=== PATIENT | female | born 1995 | race Caucasian/White ===

== ENCOUNTER 2018-05-07 09:41 | Emergency (ER) | payer BC ==
[2018-05-07 10:05] VITALS: BP 115/74
--- NOTE | 2018-05-07 11:03 | UC ---
Eye Complaint HPI - HPI Summary HPI Summary: The patient is a 23-year-old female that presents here with a 4 day history of mild left eye irritation. She'll he it was a little itchy. He woke up this morning with matted shut. She has no severe eye pain or photophobia. Does not wear contact lenses. She has had a cold for 3-5 days. She denies any fever or chills. - History of Current Complaint Chief Complaint: UCEye Stated Complaint: LEFT EYE COMPLAINT Time Seen by Provider: 05/07/18 10:56 Hx Obtained From: Patient Hx Last Menstrual Period: 03/22/16 Onset/Duration: Gradual Onset Timing: Constant Severity Initially: Mild Severity Currently: Mild Pain Intensity: 2 Pain Scale Used: 0-10 Numeric Location of Injury: Conjunctiva Associated Signs And Symptoms: Positive: Drainage (Purulent) - Allergies/Home Medications Allergies/Adverse Reactions: Allergies Allergy/AdvReac Type Severity Reaction Status Date / Time No Known Allergies Allergy Verified 05/07/18 09:57 Home Medications: Home Medications Copper (Iud) [Paragard IUD] 1 unit IU ONCE 05/07/18 [History Confirmed 05/07/18] Testosterone Nito 1 dose PO DAILY 05/07/18 [History Confirmed 05/07/18] metFORMIN* [Glucophage 500 MG TAB *] 500 mg PO DAILY 05/07/18 [History Confirmed 05/07/18] PMH/Surg Hx/FS Hx/Imm Hx Previously Healthy: Yes - PCOS Cardiovascular History: Deep Vein Thrombosis - Surgical History Surgical History: Yes Surgery Procedure, Year, and Place: tonsillectomy - Family History Known Family History: Positive: Cardiac Disease, Hypertension, Diabetes - Social History Alcohol Use: Occasionally Substance Use Type: Marijuana Substance Use Comment - Amount & Last Used: socially Smoking Status (MU): Never Smoked Tobacco Review of Systems Constitutional: Negative Skin: Negative Eyes: Drainage, Eye Redness ENT: Nasal Discharge, Sinus Congestion Respiratory: Cough Cardiovascular: Negative Gastrointestinal: Negative Genitourinary: Negative Motor: Negative Neurovascular: Negative Musculoskeletal: Negative Neurological: Negative Psychological: Negative Is Patient Immunocompromised?: No All Other Systems Reviewed And Are Negative: Yes Physical Exam Triage Information Reviewed: Yes Appearance: Well-Appearing, No Pain Distress, Well-Nourished Vital Signs: Initial Vital Signs Temp 97.9 F 10/04/18 09:57 Pulse 66 05/07/18 09:57 Resp 17 05/07/18 09:57 BP 115/74 05/07/18 09:57 Pulse Ox 100 05/07/18 09:57 Eyes: Positive: Conjunctiva Inflamed - L, Discharge - L, Other: - EOMI/PERRL ENT: Positive: Hearing grossly normal, Nasal congestion. Negative: Tonsillar swelling, Tonsillar exudate, Trismus, Muffled voice, Hoarse voice, Dental tenderness, Sinus tenderness, Uvula midline Neck: Positive: Supple, Nontender, No Lymphadenopathy Respiratory: Positive: Lungs clear, Normal breath sounds, No respiratory distress, No accessory muscle use Cardiovascular: Positive: RRR, No Murmur, Pulses Normal Musculoskeletal: Positive: ROM Intact, No Edema Neurological: Positive: Alert Psychological Exam: Normal Skin Exam: Normal Eye Complaint Course/Dx - Differential Dx/Diagnosis Provider Diagnoses: left conjunctivitis. viral URI Discharge - Sign-Out/Discharge Documenting (check all that apply): Patient Departure All imaging exams completed and their final reports reviewed: No Studies - Discharge Plan Condition: Stable Disposition: HOME Prescriptions: Polymyx/Trimethoprim OPTH* [Polytrim OPHTH*] 1 - 2 drop LEFT EYE QID #1 btl Patient Education Materials: Conjunctivitis (ED) Referrals: Sury Goetz NP [Primary Care Provider] - Additional Instructions: recheck for new or worsening symptoms recheck in 4 days if not better - Billing Disposition and Condition Condition: STABLE Disposition: Home
== END 2018-05-07 11:09 | disposition home or self-care (01) ==
LOC: UCCORT 09:41
DX: Z86.718 Personal history of other venous thrombosis and embolism (principal); H10.9 Unspecified conjunctivitis; J06.9 Acute upper respiratory infection, unspecified
CPT/HCPCS: 99212; G0463

== ENCOUNTER 2019-04-24 12:34 | Emergency (ER) | payer BC ==
--- OUTSIDE RECORDS SUMMARY | 2019-04-24 12:39 | XMS REPORT ---
:1995 Author Organization [facility] Address [address] [place] [address] Care Team Providers Name Role Phone Corine Bruce Unavailable Unavailable PROBLEMS Type Condition ICD9-CM Code [id number] Code Onset Condition SNOMED Code Dates Status Problem Polycystic E28.2 Active 89590655 ovarian syndrome Problem Morbid (severe) E66.01 Active 328690885 obesity due to excess calories Problem Acute embolism I82.409 Active 564581491 and thrombosis of unspecified deep veins of unspecified lower extremity Problem Body mass index Z68.43 Active 165688328 (BMI) 50-59.9 , adult ALLERGIES No Information ENCOUNTERS Encounter Location Date Diagnosis [facility] 103 Apr, OBGYN [place] [id number] [facility] 103 Mar, Polycystic ovarian OBGYN [facility], syndrome E28.2 [place] [id number] [facility] Jul, OBGYN [place], [place] [id number] [facility] 103 Jul, Encounter for OBGYN [facility], gynecological examination [place] [id number] (general) (routine) without abnormal findings Z01.419 ; Encounter for screening for malignant neoplasm of cervix Z12.4 ; Encounter for routine checking of intrauterine contraceptive device Z30.431 ; Polycystic ovarian syndrome E28.2 and Morbid (severe) obesity due to excess calories E66.01 [facility] 103 Jul, Polycystic ovarian OBGYN [facility], syndrome E28.2 and [place] [id number] Encounter for routine checking of intrauterine contraceptive device Z30.431 [facility] 103 Jun, Polycystic ovarian OBGYN [facility], syndrome E28.2 [place] [id number] [facility] 103 Apr, OBGYN [place], [place] [id number] [facility] 103 Mar, OBGYN [place], [place] [id number] [facility] 103 Mar, OBGYN [place] [id number] [facility] 103 Feb, OBGYN [place] [id number] [facility] 103 December, OBGYN [place], [place] [id number] [facility] 103 December, Acute vaginitis N76.0 OBGYN [place] [id number] [facility] 103 December, Polycystic ovarian OBGYN [facility], syndrome E28.2 and Acute [place] [id number] vulvitis N76.2 [facility] 103 December, Polycystic ovarian OBGYN [facility], syndrome E28.2 and [place] [id number] Encounter for routine checking of intrauterine contraceptive device Z30.431 [facility] 103 Sep, Polycystic ovarian OBGYN [facility], syndrome E28.2 [place] [id number] [facility] 103 Jun, Polycystic ovaries E28.2 OBGYN [place] [id number] [facility] 103 Jun, Polycystic ovarian OBGYN [facility], syndrome E28.2 [place] [id number] [facility] 103 Jun, Polycystic ovaries E28.2 OBGYN [place] [id number] [facility] 103 Jun, Polycystic ovarian OBGYN [facility], syndrome E28.2 ; Body mass [place] [id number] index (BMI) 50-59.9 , adult Z68.43 and Encounter for routine checking of intrauterine contraceptive device Z30.431 [facility] 103 May, Polycystic ovaries E28.2 OBGYN [place] [id number] [facility] 103 Mar, Polycystic ovarian OBGYN [facility], syndrome E28.2 and [place] [id number] Encounter for routine checking of intrauterine contraceptive device Z30.431 [facility] 103 Mar, Polycystic ovarian OBGYN [facility], syndrome E28.2 and [place] [id number] Encounter for routine checking of intrauterine contraceptive device Z30.431 [facility] 103 Mar, Encounter for OBGYN [facility], gynecological examination [place] [id number] (general) (routine) without abnormal findings Z01.419 ; Polycystic ovarian syndrome E28.2 ; Other specified noninflammatory disorders of vagina N89.8 and Body mass index (BMI) 50-59.9 , adult Z68.43 [facility] 103 Aug, Encounter for routine OBGYN [facility], checking of intrauterine [place] [id number] contraceptive device Z30.431 [facility] 103 Jul, Encounter for insertion of OBGYN [facility], intrauterine contraceptive [place] [id number] device Z30.430 [facility] 103 Jul, OBGYN [facility], [place] [id number] [facility] 103 Jul, Encounter for other OBGYN [facility], general counseling and [place] [id number] advice on contraception Z30.09 and Encounter for screening for infections with a predominantly sexual mode of transmission Z11.3 IMMUNIZATIONS No Known Immunizations SOCIAL HISTORY Never Assessed REASON FOR REFERRAL FUNCTIONAL STATUS PLAN OF CARE Activity Details Pending Test INSULIN VITAL SIGNS MEDICATIONS Unknown Medications PROCEDURES No Known procedures RESULTS No Results REASON FOR VISIT New Refill Request - LMTCB 03/25/19 Insurance Providers [facility] Member Patient Patient Patient Patient Patient Subscriber Subscriber Subscriber Group Insurance Plan Plan Plan Plan ID Relationship Address Phone Name Date of ID Name Date of No Type Insurance Insurance Insurance Coverage to Subscriber Address Phone Name Dates [facility] [address] [place] [id number] Blue [id number] Cross/Blue [place] Cross/Blue Shield [id number] Shield [place]amine [address]- [place] [id number] Blue [id number] [address] Cross[place] Cross/Blue Shield [id number] Shield MEDICAL (GENERAL) HISTORY Type Description Date Medical History DVT- late summer Medical History PCOS Medical History Tinea Surgical History tonsillectomy 06/2016
--- OUTSIDE RECORDS SUMMARY | 2019-04-24 12:39 | XMS REPORT ---
:[address] [facility] Address [address] [place] [address] Care Team Providers Name Role Phone Corine Bruce Unavailable Unavailable PROBLEMS Type Condition ICD9-CM Code [id number] Code Onset Condition SNOMED Code Dates Status Problem Morbid (severe) E66.01 Active 139003480 obesity due to excess calories Problem Other specified N93.8 Active 854943921 abnormal uterine and vaginal bleeding Problem Acute embolism I82.409 Active 288981130 and thrombosis of unspecified deep veins of unspecified lower extremity Problem Body mass index Z68.43 Active 421777714 (BMI) 50-59.9 , adult Problem Polycystic E28.2 Active 90748269 ovarian syndrome ALLERGIES No Known Allergies ENCOUNTERS Encounter Location Date [facility] Jul, OBGYN [place], [place] [id number] [facility] 103 Apr, OBGYN [place] [id number] [facility] 103 Apr, Polycystic ovarian OBGYN [facility], syndrome E28.2 and Other [place] [id number] specified abnormal uterine and vaginal bleeding N93.8 [facility] 103 Mar, Polycystic ovarian OBGYN [facility], syndrome E28.2 [place] [id number] [facility] 103 Jul, OBGYN [place], [place] [id number] [facility] 103 Jul, Encounter for OBGYN [facility], gynecological examination [place] [id number] (general) (routine) without abnormal findings Z01.419 ; Encounter for screening for malignant neoplasm of cervix Z12.4 ; Encounter for routine checking of intrauterine contraceptive device Z30.431 ; Polycystic ovarian syndrome E28.2 and Morbid (severe) obesity due to excess calories E66.01 [facility] 103 Jul, Polycystic ovarian OBGYN [facility], syndrome E28.2 and [place] [id number] Encounter for routine checking of intrauterine contraceptive device Z30.431 [facility] 103 Jun, Polycystic ovarian OBGYN [facility], syndrome E28.2 [place] [id number] [facility] 103 Apr, OBGYN [place], [place] [id number] [facility] 103 Mar, OBGYN [place], [place] [id number] [facility] 103 Mar, OBGYN [place], [place] [id number] [facility] 103 Feb, OBGYN [place], [place] [id number] [facility] 103 December, OBGYN [place], [place] [id number] [facility] 103 December, Acute vaginitis N76.0 OBGYN [place], [place] [id number] [facility] 103 December, Polycystic ovarian OBGYN [facility], syndrome E28.2 and Acute [place] [id number] vulvitis N76.2 [facility] 103 December, Polycystic ovarian OBGYN [facility], syndrome E28.2 and [place] [id number] Encounter for routine checking of intrauterine contraceptive device Z30.431 [facility] 103 Sep, Polycystic ovarian OBGYN [facility], syndrome E28.2 [place] [id number] [facility] 103 Jun, Polycystic ovaries E28.2 OBGYN [facility] [id number] [facility] 103 Jun, Polycystic ovarian OBGYN [facility], syndrome E28.2 [place] [id number] [facility] 103 Jun, Polycystic ovaries E28.2 OBGYN [facility] [id number] [facility] 103 Jun, Polycystic ovarian OBGYN [facility], syndrome E28.2 ; Body mass [place] [id number] index (BMI) 50-59.9 , adult Z68.43 and Encounter for routine checking of intrauterine contraceptive device Z30.431 [facility] 103 May, Polycystic ovaries E28.2 OBGYN [facility] [id number] [facility] 103 Mar, Polycystic ovarian OBGYN [facility], syndrome E28.2 and [place] [id number] Encounter for routine checking of intrauterine contraceptive device Z30.431 [facility] 103 Mar, Polycystic ovarian OBGYN [facility], syndrome E28.2 and [place] [id number] Encounter for routine checking of intrauterine contraceptive device Z30.431 [facility] 103 Mar, Encounter for OBGYN [facility], gynecological examination [place] [id number] (general) (routine) without abnormal findings Z01.419 ; Polycystic ovarian syndrome E28.2 ; Other specified noninflammatory disorders of vagina N89.8 and Body mass index (BMI) 50-59.9 , adult Z68.43 [facility] 103 Aug, Encounter for routine OBGYN [facility], checking of intrauterine [place] [id number] contraceptive device Z30.431 [facility] 103 Jul, Encounter for insertion of OBGYN [facility], intrauterine contraceptive [place] [id number] device Z30.[address] [facility] 103 Jul, OBGYN [facility] [place] [id number] [facility] 103 Jul, Encounter for other OBGYN [facility], general counseling and [place] [id number] advice on contraception Z30.09 and Encounter for screening for infections with a predominantly sexual mode of transmission Z11.3 IMMUNIZATIONS No Known Immunizations SOCIAL HISTORY Never Assessed REASON FOR REFERRAL FUNCTIONAL STATUS PLAN OF CARE Activity Details Follow Up annual/PCOS f/u 12- w/Radha,schedule hysterosono /EMB with f/u Reason: Pending Test Insulin Level VITAL SIGNS Height 65.5 in 2019-04-12 Weight 316 lbs 2019-04-12 BMI 51.78 kg/m2 2019-04-12 Blood pressure systolic 112 mm Hg 2019-04-12 Blood pressure diastolic 88 mm Hg 2019-04-12 MEDICATIONS Medication Instructions Dosage Frequency Start End Duration Status Date Date Vitamin B12 100 orally once a 1 tab(s) 24h Active mcg day Cytotec 200 mcg orally 1 at 1 tab(s) Sep, 1 days Active dinner, 1 at 2019 bedtime, 1 in AM metformin 500 mg orally 3 times 1 tab(s) Apr, 90 days Active a day with 2019 meals spironolactone 50 orally 2 times 1 tab(s) 12h Apr, 90 days Active mg a day 2019 Paragard 68.7mg as directed Jul, Active Copper 2015 PROCEDURES No Known procedures RESULTS No Results REASON FOR VISIT f/u to insulin lab, Review menses Insurance Providers [facility] Member Patient Patient Patient Patient Patient Subscriber Subscriber Subscriber Group Insurance Plan Plan Plan Plan ID Relationship Address Phone Name Date of ID Name Date of No Type Insurance Insurance Insurance Coverage to Subscriber Address Phone Name Dates [place]amine [address] [place] [id number] Blue [address] Cross/Blue [place] Cross/Blue Shield [id number] Shield [place] [address] [place] [id number] Blue [address] Cross/Blue [place] Cross/Blue Shield [id number] [facility] MEDICAL (GENERAL) HISTORY Type Description Date Medical History DVT- late summer - 2015 Medical History PCOS Medical History Tinea Surgical History tonsillectomy 06/2016
[2019-04-24 12:41] VITALS: BP 123/71
--- NOTE | 2019-04-24 12:45 | UC ---
Throat Pain/Nasal Jonah HPI - HPI Summary HPI Summary: 24-year-old female has had a sore throat since last evening. She denies any fever or chills. She is visiting a grandfather who is undergoing chemotherapy and she wanted a strep test to make sure she is not contagious. - History of Current Complaint Chief Complaint: UCRespiratory Stated Complaint: THROAT PAIN Time Seen by Provider: 04/24/19 12:44 Hx Obtained From: Patient Hx Last Menstrual Period: now ?: No Onset/Duration: Gradual Onset Severity: Mild Pain Intensity: 5 Cough: None - Allergies/Home Medications Allergies/Adverse Reactions: Allergies Allergy/AdvReac Type Severity Reaction Status Date / Time No Known Allergies Allergy Verified 04/24/19 12:42 PMH/Surg Hx/FS Hx/Imm Hx Previously Healthy: Yes Cardiovascular History: Deep Vein Thrombosis GI/ History: Other - PCOS - Surgical History Surgical History: Yes Surgery Procedure, Year, and Place: tonsillectomy - Family History Known Family History: Positive: Cardiac Disease, Hypertension, Diabetes - Social History Alcohol Use: Occasionally Substance Use Type: Marijuana Substance Use Comment - Amount & Last Used: socially Smoking Status (MU): Never Smoked Tobacco Review of Systems All Other Systems Reviewed And Are Negative: Yes ENT: Positive: Sore Throat - Sore throat since last evening Is Patient Immunocompromised?: No Physical Exam Triage Information Reviewed: Yes Appearance: Well-Appearing, No Pain Distress, Well-Nourished, Obese Vital Signs: Initial Vital Signs Temp 97.9 F 04/24/19 12:39 Pulse 86 04/24/19 12:39 Resp 16 04/24/19 12:39 BP 123/71 04/24/19 12:39 Pulse Ox 98 04/24/19 12:39 Vital Signs Reviewed: Yes Eyes: Positive: Conjunctiva Clear ENT: Positive: Pharynx normal, TMs normal, Uvula midline Neck: Positive: Supple, Nontender, No Lymphadenopathy Respiratory: Positive: Lungs clear, Normal breath sounds, No respiratory distress, No accessory muscle use Cardiovascular: Positive: RRR, No Murmur, Pulses Normal, Brisk Capillary Refill Musculoskeletal Exam: Normal Neurological Exam: Normal Psychological Exam: Normal Skin Exam: Normal Throat Pain/Nasal Course/Dx - Course Course Of Treatment: Rapid strep: Negative Patient was advised to continue to wear a mask when she is visiting her grandfather did this is more than likely a viral pharyngitis and since it started last evening she can still be contagious for another 2 or 3 days. Patient is agreeable to this plan of action. - Differential Dx/Diagnosis Provider Diagnosis: Pharyngitis Discharge ED - Sign-Out/Discharge Documenting (check all that apply): Patient Departure All imaging exams completed and their final reports reviewed: No Studies - Discharge Plan Condition: Good Disposition: HOME Patient Education Materials: Pharyngitis (ED) Referrals: Sury Goetz NP [Primary Care Provider] - Additional Instructions: Increase fluids. Warm saltwater gargles or throat lozenges for pain. Even though the strep test was negative you may still have a viral pharyngitis which can be contagious for up to 3 days therefore if you're visiting your grandfather you should wear a mask. - Billing Disposition and Condition Condition: GOOD Disposition: Home
== END 2019-04-24 13:17 | disposition home or self-care (01) ==
LOC: UCEAST 12:34
DX: J02.9 Acute pharyngitis, unspecified (principal); Z86.718 Personal history of other venous thrombosis and embolism
CPT/HCPCS: 87651; 99211; G0463